=== PATIENT | male | born 1985 | race Caucasian/White ===

== ENCOUNTER → 2018-03-26 10:23 | Outpatient (CLI) | payer MEDICAID, SELFPAY | PROVIDERS: PCP Internal Medicine Adolescent Medicine; Visit Provider Nurse Practitioner Family | DX: Z02.1 Encounter for pre-employment examination (principal) ==

== ENCOUNTER 2020-10-01 18:44 | Emergency (ER) | payer OTHER, SELFPAY ==
[2020-10-01] VITALS (7 sets, daily range): BP systolic 100–135; BP diastolic 68–88; PULSE 62–73; RESP 12–20; TEMP 36.6–36.8; O2SAT 96–100; BMI 20.5
--- NOTE | 2020-10-01 19:08 | HMH.EDUTC ---
[facility] [place] Impression: Diarrhea Qualifiers: Diarrhea type: unspecified type Qualified Code(s): R19.7 - Diarrhea, unspecified Disposition: Still a Patient Condition on Discharge: Good Referrals: Cullen Gonsalez MD [Primary Care Provider] - Time of Disposition: 19:15 (sent to ed for eval) Medical Decision Making - Carl Inquiry Pt receiving controlled substance: No Vital Signs: 10/01/20 18:50 Temperature 97.9 F Temperature Source Oral Pulse Rate [Right Brachial] 72 Respiratory Rate 20 Blood Pressure [Right Arm] 123/69 Blood Pressure Mean [Right Arm] 87 Blood Pressure Source [Right Arm] Automatic Cuff Blood Pressure Position [Right Arm] Sitting 02 Sat by Pulse Oximetry 100 Oxygen Delivery Method Room Air [facility] [place] [facility] [place] - General Chief complaint: Urgent [facility] Stated complaint: diarrhea, soa, nausea, stomach pain Time Seen by Provider: 10/01/20 19:08 Mode of Arrival: Ambulatory Source of Information: Patient Limitations: No Limitations Description of Symptoms (Recalled from Triage Doc. by RN): PATIENT STATES THAT ON 09/26 HE STARTED HAVING A SHARP PAIN IN RLQ WITH DIARRHEA AND NAUSEA. ON 09/28 HE STATES HIS STOOL WAS NORMAL , BUT WAS BLACK IN COLOR. ON 09/30 HE HAD MORE DIARRHEA WHICH WAS ALSO BLACK IN COLOR. ALSO C/O ABDMONIAL BLOATING HEENT Symptoms (Recalled from RN notes): No Resp Symptoms (Recalled from RN notes): No Skin Symptoms (Recalled from RN notes): No MS Symptoms (Recalled from RN notes): No Functional Status (Recalled from RN notes): WNL - History of Present Illness Provider Complaint: 35 yr old male presnets with rlq abd pain. pt states it started with loose stool that started out dark johns and then today has been black. pt states yesterday he had bloating and today that has went down but abd is tender and hurting. - Related Data Previous Rx's Medication Instructions Recorded Magnesium Citrate [Magnesium 1 bottle PO ONCE #1 solution 01/12/19 Citrate 10oz Bottle] Ibuprofen [Ibuprofen 600mg 600 mg PO Q6HP PRN #30 tab 01/16/19 Tablet] Benzonatate [Tessalon Perle 100mg 100 mg PO TID PRN #30 cap 01/22/19 Cap] Allergies Allergy/AdvReac Type Severity Reaction Status Date / Time No Known Allergies Allergy Verified 01/20/19 18:56 - Worker's Comp Is this a Worker's Comp case?: No [facility] History - Hepatitis A Screen Drug use history?: No High risk sexual behaviors?: No History of sexually transmitted infection?: No Currently employed?: No Childcare worker?: No Do you have indoor plumbing?: Yes Do you have electricity?: Yes Attestation statement:: This patient has been screened for Hepatitis A risk factors. I have reviewed the patient's past medical history: Yes Medical History: Denies:: Diabetes Mellitus Type 1, Diabetes Mellitus Type 2 Laterality Cases: Left: Arthroscopy Knee - Social History Smoking Status: Unknown if ever smoked Alcohol Intake: never Occupational Status: other Household Members: family ROS Obtained: Yes Systems reviewed as appropriate & no additional complaints - Constitutional Constitutional: Reports system reviewed and no additional complaints, except as docu, Denies fever(s) - Eyes Eyes: Reports system reviewed and no additional complaints, except as docu - ENT Ears, Nose, Mouth, and Throat: Reports system reviewed and no additional complaints, except as docu, Denies sore throat - Cardiovascular Cardiovascular: Reports system reviewed and no additional complaints, except as docu, Denies chest pain - Respiratory Respiratory: Yes system reviewed and no additional complaints, except as docu, No change in phlegm color - Gastrointestinal Gastrointestingal: Reports: system reviewed and no additional complaints, except as docu, abdominal pain, bloating, change in bowel habits, change in stool character, diarrhea, loose stools, black, tarry stools, nausea - Genitourinary Male Genitourinary: Reports system re
--- NOTE | 2020-10-01 19:34 | PC.NURSE ---
PATIENT TO ER AT THIS TIME PER MADHAVI SEGUNDO APRN. REPORT GIVEN TO Rosa CLARK RN
--- NOTE | 2020-10-01 19:43 | CT_ITS ---
PROCEDURE: CT ABDOMEN PELVIS W CON CLINICAL INDICATION: abd pain,black stool Lower abdominal pain with black target stools COMPARISON: CT ABDPELW/O CT ABD PELVIS W/O CONTRAST from 12/17/2013 TECHNIQUE: IV Contrast: 75ML Isovue 370 Oral Contrast None Axial images obtained with sagittal and coronal reformats. All CT scans at the facility use one or more dose reduction, viz: automated exposure control, ma/kV adjustment per patient size (including targeted exams where dose is matched to indication, i.e. head), or iterative reconstruction technique. FINDINGS: LOWER THORAX: Stable small bilateral nodules. ABDOMEN & PELVIS: There are 2 hypodense lesions of the left lobe of the liver measuring approximately 8 mm. These are indeterminate. Spleen is enlarged at 18 cm. The gallbladder, the adrenal glands, the pancreas, and kidneys have an unremarkable appearance. There is a small umbilical hernia which contains fat. No renal or ureteral calculi. No hydronephrosis. No evidence of appendicitis. No evidence of diverticulitis. No intestinal obstruction or free air. No acute bony anomaly. There is a septated lucency noted in the left ilium measuring 2 cm laterally with a central small sclerotic focus. This is not significantly changed. Scattered small nodes are present within the central mesenteric region IMPRESSION: No definite acute finding. Scattered small mesenteric lymph nodes nonspecific but could be seen with mesenteric adenitis. Dictated by: Joseph Keita MD 10/02/2020 06:57 Joseph Keita MD in [place] 10/02/2020 06:57
[2020-10-01 19:49] LABS: Basophils # 0.1 K/mm3 (0-0.2); Basophils % 0.8 % (0.1-2.0); Eosinophils # 0.1 K/mm3 (0.0-0.4); Eosinophils % 1.2 % (0.1-12.0); Hematocrit 44.1 % (42.0-52.0); Hemoglobin 14.7 g/dL (14.1-18.0); Lymphocytes # 1.9 K/mm3 (0.7-4.5); Mean Corpuscular HGB Conc 33.4 g/dL (31.8-35.4); Mean Corpuscular Hemoglobin 30.2 pg (27.0-31.2); Mean Corpuscular Volume 90.5 fl (80-94); Mean Platelet Volume 7.7 fl (7.4-10.4); Monocytes # 0.3 K/mm3 (0.1-1.0); Monocytes % 5.3 % (1.7-9.3); Neutrophils # 3.9 K/mm3 (1.8-7.8); Neutrophils % 62.8 % (37.0-80.0); Platelet Count 197 K/mm3 (142-424); Red Blood Count 4.88 M/mm3 (4.60-6.20); Red Cell Distribution Width 12.9 % (11.5-17.5); White Blood Count 6.3 K/mm3 (4.8-10.8)
[2020-10-01 19:52] LABS: Chloride 102 mmol/L (98-107); Sodium 139 mmol/L (136-145)
[2020-10-01 19:53] LABS: Potassium 3.7 mmoL/L (3.5-5.1)
[2020-10-01 19:55] LABS: Alanine Aminotransferase 36 U/L (12-78); Amylase 49 U/L (30-110); Anion Gap 11.7 mEq/L (5-15); Aspartate Amino Transferase 37 U/L (17-59); Bilirubin,Unconjugated 0.7 mg/dL (0.0-1.1); Blood Urea Nitrogen 17 mg/dl (9-20); Calcium 9.6 mg/dl (8.4-10.2); Carbon Dioxide 29 mmol/L (22.0-30.0); Creatinine Clearance Estimated 120 mL/min (50-200); Estimated Glomerular Filt Rate 97 ml/min (>60); GFR (African American) 118 ML/MIN (>60); Glucose 110 mg/dl (74-100); Lipase 49 U/L (23-300)
[2020-10-01 19:56] LABS: Albumin Level 4.8 g/dl (3.5-5.0); Alkaline Phosphatase 68 U/L (38-126); Bilirubin,Indirect 0.7 mg/dL (0.0-0.9); Bilirubin,Total 0.7 mg/dl (0.2-1.3); Total Protein,Serum 7.9 g/dl (6.3-8.2)
[2020-10-01 20:02] LABS: C-Reactive Protein 4.4 mg/L (0-4)
[2020-10-01 20:15] LABS: Procalcitonin 0.084 ng/mL (0.0-2.0)
[2020-10-01 20:38] LABS: Erythrocyte Sedimentation Rate 16 mm/hr (0-15)
--- NOTE | 2020-10-01 22:05 | HMH.EDNVD ---
ED Disposition Clinical Impression: Diarrhea Qualifiers: Diarrhea type: unspecified type Qualified Code(s): R19.7 - Diarrhea, unspecified Abdominal pain Qualifiers: Abdominal location: generalized Qualified Code(s): R10.84 - Generalized abdominal pain Disposition: Home, Self-Care Condition on Discharge: Good Instructions: DI for Acute Abdomen Additional Instructions: fluids and see pcp for follow up Referrals: Cullen Gonsalez MD [Primary Care Provider] - Hemant Karimi MD [Staff Physician] - - Critical Care Critical Care Time: No Attestation: On 10/01/20, the high probability of a clinically significant, sudden or life threatening deterioration of the following system(s) required my full and direct attention, intervention and personal management. The time I documented below is in addition to time spent performing reported procedures but includes the following listed in this critical care notation. Medical Decision Making - Medical Records Medical records reviewed: Yes: I reviewed the patient's medical records. - Carl Inquiry Pt receiving controlled substance: No Vital Signs: 10/01/20 18:50 10/01/20 19:35 10/01/20 20:09 Temperature 97.9 F 98.2 F Temperature Source Oral Oral Pulse Rate [Right Brachial] 72 67 67 Respiratory Rate 20 16 13 Blood Pressure [Right Arm] 123/69 113/79 115/70 Blood Pressure Mean [Right Arm] 87 90 85 Blood Pressure Source [Right Arm] Automatic Cuff Automatic Cuff Blood Pressure Position [Right Arm] Sitting Sitting 02 Sat by Pulse Oximetry 100 99 96 Oxygen Delivery Method Room Air Room Air 10/01/20 20:30 10/01/20 21:00 10/01/20 21:30 Temperature Temperature Source Pulse Rate [Right Brachial] 64 64 62 Respiratory Rate 13 12 15 Blood Pressure [Right Arm] 100/88 L 100/70 L 107/68 L Blood Pressure Mean [Right Arm] 92 80 81 Blood Pressure Source [Right Arm] Blood Pressure Position [Right Arm] 02 Sat by Pulse Oximetry 98 99 99 Oxygen Delivery Method - Lab Data Lab results reviewed: Yes: I reviewed the patient's lab results. Lab Results 10/01/20 19:10: WBC 6.3, RBC 4.88, Hgb 14.7, Hct 44.1, MCV 90.5, MCH 30.2, MCHC 33.4, RDW 12.9, Plt Count 197, MPV 7.7, Neut % (Auto) 62.8, Lymph % (Auto) 30.0, Cascade % (Auto) 5.3, Eos % (Auto) 1.2, Baso % (Auto) 0.8, Neut # (Auto) 3.9, Lymph # (Auto) 1.9, Cascade # (Auto) 0.3, Eos # (Auto) 0.1, Baso # (Auto) 0.1 10/01/20 19:10: Sodium 139, Potassium 3.7, Chloride 102, Carbon Dioxide 29, Anion Gap 11.7, BUN 17, Creatinine 0.90, Estimated Creat Clear 120, Estimated GFR 97, Est GFR ( Amer) 118, Glucose 110 H, Calcium 9.6, Total Bilirubin 0.7, Direct Bilirubin 0.0, Conjugated Bilirubin 0.0, Indirect Bilirubin 0.7, Unconjugated Bilirubin 0.7, AST 37, ALT 36, Alkaline Phosphatase 68, Total Protein 7.9, Albumin 4.8, Amylase 49 10/01/20 19:10: Lipase 49 10/01/20 19:10: C-Reactive Protein 4.4 H, Procalcitonin 0.084 10/01/20 19:10: ESR 16 H Result diagrams: 10/01/20 19:10 10/01/20 19:10 Orders (Tests/Meds): ED MEDICATIONS Discontinued Medications Generic Name Dose Route Start Last Admin Trade Name Freq PRN Reason Stop Dose Admin Iopamidol 75 ml 10/01/20 20:35 10/01/20 20:36 Iopamidol-370 (76%);100ml Bottle IV 10/01/20 20:36 75 ml ONCE ONE Administration Sodium Chloride 10 ml 10/01/20 20:35 10/01/20 20:36 Sodium Chloride 0.9% 10ml Syr (Rad Only) IV 10/01/20 20:36 10 ml ONCE ONE Administration ORDERS Category Date Time Status CT abdomen pelvis w con Stat Cat Scan 10/01/20 19:43 Taken Occult Blood,Stool Stat Lab 10/01/20 19:43 Ordered Urinalysis and Microscopic Stat Lab 10/01/20 19:43 Ordered - CT Data CT Scan: Abdomen, Pelvis Time Received: 22:[address] Reviewed: Yes: I have viewed the radiologist's interpretation Preliminary Findings: Abnormal - Reevaluation(s) Time: 22:09 Reevaluation #1: improved Nausea/Vomiting/Diarrhea HPI - General Chief co
== END 2020-10-01 22:16 | disposition home or self-care (01) ==
LOC: UTC 19:16 → ER 19:32
PROVIDERS: Emergency Provider Emergency Medicine; PCP Internal Medicine Adolescent Medicine
DX: R10.84 Generalized abdominal pain (principal); R11.0 Nausea; R06.09 Other forms of dyspnea
CPT/HCPCS: 74177; 80048; 80076; 82150; 83690; 84145; 85025; 85651; 86140; 99284; Q9967

== ENCOUNTER 2021-07-05 09:05 | Emergency (ER) | payer OTHER, SELFPAY ==
[2021-07-05 09:30] VITALS: BP 131/83; PULSE 77; RESP 18; TEMP 37.7; O2SAT 98; BMI 20.7
--- NOTE | 2021-07-05 09:37 | HMH.EDUTC ---
[facility] [place] Clinical Impression: Encounter for laboratory testing for COVID-19 virus Disposition: Home, Self-Care Condition on Discharge: Good Instructions: DI for COVID-19 (Suspected or Confirmed ), Preventing the Spread of Coronavirus Discharge Instructions Additional Instructions: *Monitor Temp, Over the counter Motrin or Tylenol as directed/as needed Tylenol every 4 hours and Motrin every 6 hours (as long as your family doctor has told you that you can take it) for fever or pain. and straight to ER if unable to lower temp less than 101.0 after medication given *Warm salt water gargles may help to soothe the throat *Throat Lozenges *Warm fluids like tea with honey may help to soothe the throat *Sleep elevated *Humidifier/Vaporizer *Flonase 2 sprays in each nostril daily but be aware that it may take 2-3 days before you notice improvement *Bromfed may cause drowsiness. Know how it effects you (your child) before driving, caring for small child, or sending your child to school. Not other antihistamines/allergy medications while taking bromfed Follow up IMMEDIATELY for new or worsening symptoms or no Noticeable improvement over the next 48-72 hours. 911 for difficulty breathing or swallowing You were tested for today for COVID19 your test result should be back in the next 24-48 hours, you may call to the [facility] to see if your test results are back in the next 48 hours [phone] [facility] hours are 9am-9pm You was given a handout with instructions for Self Quarantine and Self isolation for while you wait on test results and what to do if they are positive If you are positive the Health Dept will be contacting you also Make sure to take your Vitamins Vit. C Vit D and Zinc if you can take them Prescriptions: Brompheniramine/Pseudoephed/Dm [Bromfed Dm Cough Syrup] 5 - 10 ml PO Q46H PRN #200 ml PRN Reason: Cough Transmission Status: [facility] to [id number] Fluticasone Propionate [Flonase 50mcg nasal spray 16gm] 1 spr NS DAILY #1 each Transmission Status: Pending to [id number] Referrals: Provider,Referral, MD [Primary Care Provider] - As needed Time of Disposition: 09:40 Medical Decision Making - Carl Inquiry Pt receiving controlled substance: No Carl was queried for this patient: No Vital Signs: 07/05/21 09:30 Temperature 99.8 F H Temperature Source Oral Pulse Rate [Right] 77 Respiratory Rate 18 Blood Pressure [Right Arm] 131/83 Blood Pressure Mean [Right Arm] 99 02 Sat by Pulse Oximetry 98 Orders (Tests/Meds): ORDERS Category Date Time Status Covid-19 Nasal PCR ([facility]) Routine Lab 07/05/21 09:31 Ordered [facility] [place] [facility] [place] - General Stated complaint: covid test Time Seen by Provider: 07/05/21 09:37 Mode of Arrival: Ambulatory Description of Symptoms (Recalled from Triage Doc. by RN): CHECK FOR COVID 19 RUNNY NOSE COUGH & CONGESTIONS SINCE YESTERDAY HEENT Symptoms (Recalled from RN notes): Yes Resp Symptoms (Recalled from RN notes): No Skin Symptoms (Recalled from RN notes): No MS Symptoms (Recalled from RN notes): No Functional Status (Recalled from RN notes): WNL - History of Present Illness Provider Complaint: Patient states that he has been feeling achy, having runny nose and cough States that his work wanted him to get tested before he can come back Denies known exposure but wanted to get tested for COVID - Related Data Previous Rx's Medication Instructions Recorded Magnesium Citrate [Magnesium 1 bottle PO ONCE #1 solution 01/12/19 Citrate 10oz Bottle] Ibuprofen [Ibuprofen 600mg 600 mg PO Q6HP PRN #30 tab 01/16/19 Tablet] Benzonatate [Tessalon Perle 100mg 100 mg PO TID PRN #30 cap 01/22/19 Cap] Brompheniramine/Pseudoephed/Dm 5 - 10 ml PO Q46H PRN #200 ml 07/05/21 [Bromfed Dm Cough Syrup] Fluticasone Propionate [Flonase 1 spr NS DAILY #1 each 07/05/21 50mcg nasal spray 16gm] Allergies Allergy/AdvReac Type Severity Reaction Status Date / Time No Maria Antonia
[2021-07-05 09:47] VITALS: BP 131/83; PULSE 77; RESP 18; TEMP 37.7; O2SAT 98
== END 2021-07-05 09:49 | disposition home or self-care (01) ==
PROVIDERS: Emergency Provider Nurse Practitioner
DX: U07.1 COVID-19 (principal)
CPT/HCPCS: 99202; G0463; U0003

== ENCOUNTER → 2021-11-10 13:53 | Outpatient (CLI) | payer OTHER, SELFPAY | PROVIDERS: Visit Provider Nurse Practitioner | DX: Z20.822 Contact with and (suspected) exposure to COVID-19 (principal) | CPT/HCPCS: C9803; U0003; U0005 ==

== ENCOUNTER 2023-07-04 14:42 | Emergency (ER) | payer OTHER, SELFPAY ==
[2023-07-04 14:50] VITALS: BP 115/75; PULSE 75; RESP 20; TEMP 36.6; O2SAT 98; BMI 21.9
--- NOTE | 2023-07-04 15:06 | EXP.UTC ---
Discharge Plan Disposition Patient Disposition: Home, Self-Care Condition: Good Prescriptions Prescriptions: New guaifenesin [Mucinex] 600 mg tablet extended release 12hr 1,200 mg PO BID PRN (Reason: cough) Qty: 20 0RF No Action magnesium citrate [Citrate of Magnesia] 1 BOT solution 1 bottle PO ONCE Qty: 1 0RF ibuprofen 600 MG tablet 600 mg PO Q6HP PRN (Reason: Mild Pain) Qty: 30 0RF benzonatate [Tessalon Perles] 100 MG capsule 100 mg PO TID PRN (Reason: Cough) Qty: 30 0RF ytyuwsoqclfrjho-ujwdsqsnz-MO 118 ML syrup 5 - 10 ml PO Q46H PRN (Reason: Cough) Qty: 200 0RF fluticasone propionate 120 SPR/BOT bottle 1 spr NS DAILY Qty: 1 0RF Rx Instructions: Each nostril daily Referrals Follow up/Referrals: Cullen Gonsalez MD [Primary Care Provider] - See instructions Activity Restrictions/Add. Instructions Additional Instructions/Restrictions: *Monitor Temp, Over the counter Motrin or Tylenol as directed/as needed Tylenol every 4 hours and Motrin every 6 hours (as long as your family doctor has told you that you can take it) for fever or pain. and straight to ER if unable to lower temp less than 101.0 after medication given *Warm salt water gargles may help to soothe the throat *Throat Lozenges? *Warm fluids like tea with honey may help to soothe the throat? *Sleep elevated *Humidifier/Vaporizer Your throat swab was sent for culture. Those results are typically sent to your primary care. Be sure to follow up in 2-3 days with your family doctor/primary care physician if no improvement so they can review those result and treat if necessary. If you don?t have a primary care doctor, I recommend you get one but in the mean time, you will have to return to a walk in clinic Follow up IMMEDIATELY for new or worsening symptoms or no Noticeable improvement over the next 48-72 hours. 911 for difficulty breathing or swallowing You were tested for today for COVID19 your test result should be back in the next 24 hours you may check for your results on the [facility] Portal you will need to Quarantine until your test results are neg or if they was Positive then Quarantine for 5 days Clinical Impressions Clinical Impression: Viral syndrome Stand Alone Forms Stand Alone Forms: Work/School Release Instructions Patient Instructions: DI for COVID-19 (Suspected or Confirmed ), Preventing the Spread of Coronavirus Discharge Instructions, Coronavirus Disease 2019 Discharge ED Provider: Marry Evans [facility] HPI General Stated complaint: sore throat,lung pain, cough Mode of Arrival: Ambulatory Source of Information: Patient Limitations: No Limitations Time Seen by Provider: 07/04/23 15:06 Description of Symptoms (Recalled from Triage Doc. by RN): PATIENT C/O SOA, BODY ACHES, DIZZINESS AND COUGH. RECENTY EXPOSED TO COVID HEENT Symptoms (Recalled from RN notes): Yes Resp Symptoms (Recalled from RN notes): No Skin Symptoms (Recalled from RN notes): No MS Symptoms (Recalled from RN notes): No Functional Status (Recalled from RN notes): WNL History of Present Illness Provider Complaint: Patient states that he was recently exposed to COVID State that his shen tested positive last night but not sure if he has that or something else States that he has been having sinus congestion, drainage in the back of his throat, sore scratchy and burning in his chest at times when he coughs Related Data Previous Rx's Medication Instructions Recorded magnesium citrate (Citrate of 1 bottle PO ONCE ##1 01/12/19 Magnesia oral) ibuprofen 600 mg tablet 600 mg PO Q6HP PRN Mild Pain #30 01/16/19 tabs benzonatate 100 mg capsule 100 mg PO TID PRN Cough #30 caps 01/22/19 (Devon Butler) [id number]-azoguwqerzkcwkz-YY 5 - 10 ml PO Q46H PRN Cough #200 mL 07/05/21 2 mg-30 mg-10 mg/5 mL oral syrup fluticasone propionate 50 1 spr NS DAILY #1 ea 07/05/21 mcg/actuation na
[2023-07-04 15:20] VITALS: BP 115/75; PULSE 75; RESP 20; TEMP 36.6; O2SAT 98
[2023-07-04 15:21] LABS: UTC Strep Screen (Rapid) Negative (Negative)
== END 2023-07-04 15:26 | disposition home or self-care (01) ==
PROVIDERS: Emergency Provider Nurse Practitioner; PCP Internal Medicine Adolescent Medicine
DX: R05.9 Cough, unspecified (principal); R09.81 Nasal congestion; B34.9 Viral infection, unspecified; Z20.822 Contact with and (suspected) exposure to COVID-19
CPT/HCPCS: 87880; 99212; 99214; G0463

== ENCOUNTER 2024-01-26 15:11 | Emergency (ER) | payer OTHER, SELFPAY ==
[2024-01-26 15:20] VITALS: BP 119/73; PULSE 72; RESP 19; TEMP 36.8; O2SAT 97; BMI 20.6
[2024-01-26 15:31] LABS: Microscopic, Urine URINE MICROSCOPIC (MICROSCOPIC)
--- NOTE | 2024-01-26 15:35 | ED_ITS ---
Discharge Plan Disposition Patient Disposition: Home, Self-Care Condition: Good Prescriptions Prescriptions: No Action magnesium citrate [Citrate of Magnesia] 1 BOT solution 1 bottle PO ONCE Qty: 1 0RF ibuprofen 600 MG tablet 600 mg PO Q6HP PRN (Reason: Mild Pain) Qty: 30 0RF benzonatate [Tessalon Perles] 100 MG capsule 100 mg PO TID PRN (Reason: Cough) Qty: 30 0RF opejfebbqaekpdg-nduuhmxha-TR 118 ML syrup 5 - 10 ml PO Q46H PRN (Reason: Cough) Qty: 200 0RF fluticasone propionate 120 SPR/BOT bottle 1 spr NS DAILY Qty: 1 0RF Rx Instructions: Each nostril daily guaifenesin [Mucinex] 600 mg tablet extended release 12hr 1,200 mg PO BID PRN (Reason: cough) Qty: 20 0RF Referrals Follow up/Referrals: Cullen Gonsalez MD [Primary Care Provider] - See instructions Activity Restrictions/Add. Instructions Additional Instructions/Restrictions: Do not have any sexual contact with anyone until your test results are back and are either negative or you have been treated Follow up with your Family Doctor in the next 5 days for the results if they are back and further treatment if needed Make sure to follow up with your Family Doctor they will be able to see your results and can go over them with you Straight to ER if any life threatening symptoms Clinical Impressions Clinical Impression: Exposure to STD Instructions Patient Instructions: Facts About Sexually Transmitted Infections, How to Detect and Treat STDs, Chlamydia: The Silent STD Discharge ED Provider: Marry Evans [facility] General Stated complaint: check for sexual diseases Mode of Arrival: Ambulatory Source of Information: Patient Limitations: No Limitations Time Seen by Provider: 01/26/24 15:35 Description of Symptoms (Recalled from Triage Doc. by RN): PATIENT REPORTS POSSIBLE EXPOSURE TO AN STD BUT DOES NOT KNOW THE NAME. DENIES SYMPTOMS AT THIS TIME HEENT Symptoms (Recalled from RN notes): No Resp Symptoms (Recalled from RN notes): No Skin Symptoms (Recalled from RN notes): No MS Symptoms (Recalled from RN notes): No Functional Status (Recalled from RN notes): WNL History of Present Illness Provider Complaint: Patient states that he was with someone that was on some medication for an STD and he is not sure which one but thinks she has to take the medication when she has an outbreak States that he does not having any lesions or sores on him but wanted to get tested for GC/Chlamydia and herpes Related Data Previous Rx's Medication Instructions Recorded magnesium citrate (Citrate of 1 bottle PO ONCE ##1 01/12/19 Magnesia oral) ibuprofen 600 mg tablet 600 mg PO Q6HP PRN Mild Pain #30 01/16/19 tabs benzonatate 100 mg capsule 100 mg PO TID PRN Cough #30 caps 01/22/19 (Devon Butler) [id number]-gakdabyzgsqfrxb-UM 5 - 10 ml PO Q46H PRN Cough #200 mL 07/05/21 2 mg-30 mg-10 mg/5 mL oral syrup fluticasone propionate 50 1 spr NS DAILY #1 ea 07/05/21 mcg/actuation nasal spray,suspension guaifenesin 600 mg tablet, 1,200 mg (2 x 600 mg) PO BID PRN 07/04/23 extended release 12 hr (Mucinex) cough #20 tabs Allergies Allergy/AdvReac Type Severity Reaction Status Date / Time No Known Allergies Allergy Verified 07/05/21 09:37 Worker's Comp Is this a Worker's Comp case?: No [facility] Disclaimer: The information contained in this section may have been updated after the patient was seen, as this information can be updated by other users. Social History Smoking Status: Unknown if ever smoked alcohol intake: never current occupational status: other Travel in the last 8 weeks: None household members: family ROS Obtained: Yes All systems reviewed & no additional complaints except as documented and Yes Systems reviewed as appropriate & no additional complaints except as documented Constitutional Constitutional: Reports system reviewed and no additional complaints, except as documented and Reports as per HPI ENT Ears, Nose, Mouth, and Throat: Reports system reviewed and no additional complaints, except as documented and Reports as per HPI Cardiovascular Cardiovascular: Reports system reviewed and no additional complaints, except as documented and Reports as per HPI Respiratory Respiratory: Reports system reviewed and no additional complaints, except as documented and Reports as per HPI Gastrointestinal Gastrointestingal: Reports system reviewed and no additional complaints, except as documented and as per HPI Genitourinary Male Genitourinary: Reports system reviewed and no additional complaints, except as documented, Reports as per HPI, Denies genital lesions, Denies genital pain, Denies penile discharge, Denies scrotal swelling, Denies testicular mass and Denies testicular pain Physical Exam General General appearance: alert and in no apparent distress Chest Chest inspection: Present normal inspection and symmetric chest wall rise Respiratory Respiratory exam: Present normal lung sounds bilaterally; Absent respiratory distress or wheezes Cardiovascular Cardiovascular exam: Present regular rate, normal rhythm and normal heart sounds Neurological Exam Neurological exam: Present alert, oriented X3 and normal gait Medical Decision Making Carl Inquiry Pt receiving controlled substance: No Carl was queried for this patient: No Vital Signs: 01/26/24 15:20 Temperature 98.2 F Temperature Source Oral Pulse Rate [Left Brachial] 72 Respiratory Rate 19 Blood Pressure [Left Arm] 119/73 Blood Pressure Mean [Left Arm] 88 Blood Pressure Source [Left Arm] Automatic Cuff Blood Pressure Position [Left Arm] Sitting 02 Sat by Pulse Oximetry 97 Oxygen Delivery Method Room Air Orders (Tests/Meds): ORDERS Category Date Time Status HSV 1 and 2-Specific Ab, IgG Stat Lab 01/26/24 15:33 Ordered UA [Urinalysis and Microscopic] Stat Lab 01/26/24 15:20 Received
[2024-01-26 15:37] LABS: Appearance,Urine CLOUDY (Clear); Bilirubin,Urine Negative (Negative); Blood, Urine Negative (Negative); Color,Urine YELLOW (Yellow); Glucose,Urine (UA) Negative (Negative); Ketones,Urine Negative (Negative); Leukocyte Esterase,Urine Negative (Negative); Nitrate,Urine Negative (Negative); PH,Urine 7.5 (5.0-8.5); Protein,Urine Negative (Negative); Urobilinogen,Urine 0.2 EU/dl (0.2)
[2024-01-26 15:45] VITALS: BP 119/73; PULSE 72; RESP 19; TEMP 36.8; O2SAT 97
[2024-01-26 15:48] LABS: Bacteria,Urine 1+ /lpf; RBC,Urine Occasional #/hpf (0-3)
[2024-01-26 15:49] LABS: Amorphous Sediment,Urine 3+ /lpf
[2024-01-29 06:12] LABS: Neisseria gonorrhoeae, NAA Negative (Negative)
[2024-01-30 11:43] LABS: HSV 2 IgG, Type Spec <0.91
== END 2024-01-26 15:47 | disposition home or self-care (01) ==
PROVIDERS: Emergency Provider Nurse Practitioner; PCP Internal Medicine Adolescent Medicine
DX: Z20.2 Contact with and (suspected) exposure to infections with a predominantly sexual mode of transmission (principal)
CPT/HCPCS: 81001; 86695; 86790; 87491; 87591; 99212; 99213; G0463

== ENCOUNTER 2024-02-04 16:36 | Emergency (ER) | payer OTHER, SELFPAY ==
[2024-02-04 16:40] VITALS: BP 120/71; PULSE 88; RESP 19; TEMP 36.6; O2SAT 98; BMI 19.6
--- NOTE | 2024-02-04 16:53 | ED_ITS ---
Discharge Plan Disposition Patient Disposition: Home, Self-Care Condition: Good Clinical Impressions Clinical Impression: Left against medical advice Discharge ED Provider: Que Quintero [facility] [place] General Stated complaint: abdominal pain Mode of Arrival: Ambulatory Source of Information: Patient Limitations: No Limitations Time Seen by Provider: 02/04/24 16:54 Description of Symptoms (Recalled from Triage Doc. by RN): Pt's symptoms are stomach pain in the center of his stomach he states that it comes and goes, but radiates to his back. He denies vomit, diarrhea, and or vomiting. HEENT Symptoms (Recalled from RN notes): No Resp Symptoms (Recalled from RN notes): No Skin Symptoms (Recalled from RN notes): No MS Symptoms (Recalled from RN notes): No Functional Status (Recalled from RN notes): n/a History of Present Illness Provider Complaint: Patient states that he started having abdominal pain about 3-4 days ago that has got worse since yesterday and goes into his back at times states that it is uncomfortable and worse it has been today States that he was having some burning with urination and pressure several days ago and took some O TC Azo and it went away but then the stomach pain started, States that his last BM was just before he came in Denies fever, Denies N/V/D Related Data Allergies Allergy/AdvReac Type Severity Reaction Status Date / Time No Known Allergies Allergy Verified 02/04/24 16:49 Worker's Comp Is this a Worker's Comp case?: No [facility] Disclaimer: The information contained in this section may have been updated after the patient was seen, as this information can be updated by other users. Social History Smoking Status: Unknown if ever smoked alcohol intake: never current occupational status: other Travel in the last 8 weeks: None household members: family ROS Obtained: Yes All systems reviewed & no additional complaints except as documented and Yes Systems reviewed as appropriate & no additional complaints except as documented Constitutional Constitutional: Reports system reviewed and no additional complaints, except as documented, Reports as per HPI, Denies body ache, Denies chills and Denies fever(s) ENT Ears, Nose, Mouth, and Throat: Reports system reviewed and no additional complaints, except as documented and Reports as per HPI Cardiovascular Cardiovascular: Reports system reviewed and no additional complaints, except as documented and Reports as per HPI Respiratory Respiratory: Reports system reviewed and no additional complaints, except as documented and Reports as per HPI Gastrointestinal Gastrointestingal: Reports system reviewed and no additional complaints, except as documented, as per HPI and abdominal pain (reports mid to upper abdomen going through to back at times); Denies diarrhea, nausea or vomiting Comments: reports last BM earlier today Genitourinary Male Genitourinary: Reports system reviewed and no additional complaints, except as documented, Reports as per HPI and Reports other Comments: reports had burning with urination several days ago took AZO and that got better Physical Exam General General appearance: alert and in no apparent distress ENT ENT exam: Present mucous membranes moist Respiratory Respiratory exam: Present normal lung sounds bilaterally; Absent respiratory distress or wheezes Cardiovascular Cardiovascular exam: Present regular rate, normal rhythm and normal heart sounds Abdominal Exam Abdominal exam: Present soft and tenderness (reports tenderness mid to upper abdomen ); Absent distention Neurological Exam Neurological exam: Present alert, oriented X3 and normal gait Medical Decision Making Carl Inquiry Pt receiving controlled substance: No Carl was queried for this patient: No Vital Signs: 02/04/24 16:40 Temperature 97.9 F Temperature Source Oral Pulse Rate [Right Radial] 88 Respiratory Rate 19 Blood Pressure [Right Arm] 120/71 Blood Pressure Mean [Right Arm] 87 Blood Pressure Source [Right Arm] Automatic Cuff Blood Pressure Position [Right Arm] Sitting 02 Sat by Pulse Oximetry 98 Oxygen Delivery Method Room Air Lab Data Lab results reviewed: Yes I reviewed the patient's lab results. Medical Decision Narrative: Discussed with patient about abdominal pain States that sharp at times started several days ago and initially come and gone did have some burning with urination took AZO and that went away but stomach pain continued states got worse since yesterday reports pain in mid to upper abdomen and shoots through into his back at times and this evening it was bothering worse UA done in [place] trace blood discussed with patient about transfer to the ED for further evaluation and testing and he agreed upon transfer to the ED with staff, states that she wanted him to go [facility] and patient signed AMA and they left hospital
[2024-02-04 17:18] LABS: Apearance,Urine Cloudy (Clear); Bilirubin,Urine Negative (Negative); Blood, Urine Trace (Negative); Color,Urine Dark Yellow (Yellow); Glucose,Urine (UA) Negative (Negative); Ketones,Urine Negative (Negative); PH,Urine 6.5 (5.0-8.5); Protein,Urine Negative (Negative); UTC Leukocyte Esterase,Urine Negative (Negative); UTC Nitrate,Urine Negative (Negative); Urobilinogen,Urine 1 EU/dl (0.2)
--- NOTE | 2024-02-04 17:44 | PC.NURSE ---
Pt decided that he wanted to not go to the ER stated he wanted to go to another hospital. He signed an AMA form.
[2024-02-04 17:46] VITALS: BP 120/71; PULSE 88; RESP 19; TEMP 36.6; O2SAT 98
== END 2024-02-04 18:22 | disposition home or self-care (01) ==
LOC: UTC 16:39 → ER 17:42 → UTC 18:21
PROVIDERS: Emergency Provider Nurse Practitioner; PCP Internal Medicine Adolescent Medicine
DX: R10.9 Unspecified abdominal pain (principal)
CPT/HCPCS: 81003; 99212; 99213; G0463

== ENCOUNTER 2024-03-17 17:10 | Emergency (ER) | payer OTHER, SELFPAY ==
[2024-03-17 17:12] VITALS: BP 149/88; PULSE 93; RESP 20; TEMP 37.1; O2SAT 98
[2024-03-17 17:44] VITALS: BP 140/80; PULSE 88; RESP 17; TEMP 37.1; O2SAT 98
--- NOTE | 2024-03-17 17:56 | ED_ITS ---
Discharge Plan Disposition Patient Disposition: Home, Self-Care Condition: Good Prescriptions Prescriptions: New prednisone 50 mg tablet 50 mg PO DAILY 5 Days Qty: 5 0RF Referrals Follow up/Referrals: Cullen Gonsalez MD [Primary Care Provider] - See instructions Activity Restrictions/Add. Instructions Additional Instructions/Restrictions: You were evaluated in the emergency department today. We feel that you likely have radiculopathy, or issues with the nerve going down your arm. This can cause numbness, tingling, as well as pain. CT scans and x-rays in the ED do not show nerves very well, so we did not do imaging today. I recommend following up very closely with your primary care provider for this. They may choose to refer you to orthopedics or neurology as they see fit. They may also choose to order MRI as they see fit. We are prescribing you a short steroid Dosepak to help improve your symptoms of pain and paresthesias. Please complete the full course as prescribed. You may also take Tylenol and ibuprofen at home as needed for pain. Return to the emergency department for new or worsening symptoms. Clinical Impressions Clinical Impression: Cervical radiculopathy Stand Alone Forms Stand Alone Forms: Work/School Release Instructions Patient Instructions: DI for Cervical Radiculopathy Discharge ED Provider: Becky Hyde General Adult HPI General Chief complaint: PAIN Stated complaint: RT arm tingling, numb Time Seen by Provider: 03/17/24 17:16 Mode of Arrival: Ambulatory Source of Information: Patient Limitations: No Limitations Description of Symptoms (Recalled from ER Triage Doc. by RN): Patient presents to ED with right hand/arm tingling for 1 month. Patient states he will get sharp pains shooting down his arm at times as well. History of Present Illness HPI narrative: This patient is a 38-year-old male who denies significant past medical history presenting to the emergency department for evaluation with concern for 1 month of tingling, paresthesias, and sharp pain shooting from his right shoulder down his right arm. It is intermittent. He notes that it seems to get worse whenever he lifts things a lot at work. He notes that he had not seen anyone for this previously, as today is the first day that he has had time. No falls, injuries, or other concerns. No fevers or infectious symptoms. Related Data Previous Rx's Medication Instructions Recorded prednisone 50 mg tablet 50 mg PO DAILY 5 days #5 tabs 03/17/24 Allergies Allergy/AdvReac Type Severity Reaction Status Date / Time No Known Allergies Allergy Verified 02/04/24 16:49 [facility] Disclaimer: The information contained in this section may have been updated after the patient was seen, as this information can be updated by other users. Social History Smoking Status: Never smoker alcohol intake: never current occupational status: other Travel in the last 8 weeks: None household members: family ROS Obtained: Yes All systems reviewed & no additional complaints except as documented Physical Exam General General appearance: alert and in no apparent distress Head Head exam: atraumatic and normocephalic Eye Eye exam: Present normal appearance, PERRL and EOMI ENT ENT exam: Present normal exam, normal oropharynx, mucous membranes moist and normal external ear exam Neck Neck exam: Present normal inspection, full ROM and trachea midline; Absent tenderness Chest Chest inspection: Present normal inspection and symmetric chest wall rise; Absent tenderness Respiratory Respiratory exam: Present normal lung sounds bilaterally; Absent respiratory di stress, wheezes, stridor or accessory muscle use Cardiovascular Cardiovascular exam: Present regular rate and normal rhythm Abdominal Exam Abdominal exam: Present soft; Absent distention, tenderness or guarding Extremities Exam Extremities exam: Present normal inspection, full ROM, normal capillary refill and other (Subjective paresthesias and pain, but completely neurovascularly intact on exam with good pulses and sensation. Intact motor.); Absent tenderness or edema Back Exam Back exam: Present normal inspection and full ROM; Absent tenderness Neurological Exam Neurological exam: Present alert, oriented X3, CN II-XII intact and normal gait; Absent motor sensory deficit Psychiatric Psychiatric exam: Present normal affect and normal mood Skin Skin exam: Present warm and dry Medical Decision Making Medical Records Medical records reviewed: Yes I reviewed the patient's medical records. Carl Inquiry Pt receiving controlled substance: No Vital Signs: 03/17/24 17:12 03/17/24 17:44 Temperature 98.7 F 98.7 F Temperature Source Oral Oral Pulse Rate 88 Pulse Rate [Right Radial] 93 H Respiratory Rate 20 17 Blood Pressure 140/80 Blood Pressure [Right Arm] 149/88 H Blood Pressure Mean [Right Arm] 108 Blood Pressure Source [Right Arm] Automatic Cuff Blood Pressure Position [Right Arm] Sitting 02 Sat by Pulse Oximetry 98 Oxygen Delivery Method Room Air Room Air Lab Data Lab results reviewed: Yes I reviewed the patient's lab results. Medical Decision Narrative: In summary, this patient is a 38-year-old male presenting to the Emergency Department for evaluation of 1 month of intermittent paresthesias and shooting pain down his right arm. Differential diagnoses considered include but are not limited to cervical radiculopathy, brachial plexus injury, arthritis, neuropathy, vasculopathy. Ruling out the most morbid conditions drove assessment. On exam, the patient is well-appearing. Throughout the entire evaluation, patient is texting with his right hand and using his phone without difficulty. He is neurovascularly intact with no motor, vascular, or sensory deficits on exam. I feel he likely has a radiculopathy, likely cervical in nature given the location of symptoms. Given that this is a chronic issue without new traumatic injury, I do not feel that imaging such as CT scan or x-ray would likely telephone exchange operator. I do not feel labs would telephone exchange operator either. At this time, feel the patient is appropriate for discharge home with outpatient follow-up with his primary care provider for further evaluation and management should they wish to refer him to neurology versus orthopedics or order an outpatient MRI. Patient is agreeable to this. He was given a short course of prednisone to help reduce any sort of inflammation or nerve impingement. He was given instructions for close follow-up, strict return precautions, and he was discharged after all questions were answered. Critical Care Critical Care Time Critical Care Time: No
== END 2024-03-17 17:45 | disposition home or self-care (01) ==
PROVIDERS: Emergency Provider Emergency Medicine; PCP Internal Medicine Adolescent Medicine
DX: M54.12 Radiculopathy, cervical region (principal); R20.2 Paresthesia of skin; M25.511 Pain in right shoulder
CPT/HCPCS: 99283

== ENCOUNTER 2025-03-30 12:45 | Emergency (ER) | payer OTHER, SELFPAY ==
[2025-03-30 12:48] VITALS: BP 123/85; PULSE 77; RESP 18; TEMP 36.6; O2SAT 99; BMI 21.8
--- NOTE | 2025-03-30 12:59 | PC.NURSE ---
eye box and ph strips pulled for .
[2025-03-30 13:00] VITALS: BP 115/70; PULSE 69; RESP 18; O2SAT 98
--- NOTE | 2025-03-30 13:00 | PC.NURSE ---
Dr. Hyde at bedside.
[2025-03-30] MEDS: TETRACAINE 0.5% OPTH SOL 15ML OP (13:23)
[2025-03-30] MEDS: FLUORESCEIN SODIUM 1MG STRIP 1 MG OP (13:23)
[2025-03-30] MEDS: NEOMYCIN-BACIT-POLYM OPHTH OINT 3.5GM TUBE 3.5 GM OP (13:23)
--- NOTE | 2025-03-30 13:38 | PC.NURSE ---
Iv bag normal saline and drip set used to flush patients eyes, Pt did state that helped.
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
[2025-03-30] MEDS: TET/DIPHTH/PERT-ADULT 0.5ML SYRINGE 0.5 ML IM (14:08)
[2025-03-30 14:13] VITALS: BP 130/79; PULSE 87; RESP 15; TEMP 36.9; O2SAT 99
== END 2025-03-30 14:14 | disposition home or self-care (01) ==
PROVIDERS: Emergency Provider Emergency Medicine; PCP Internal Medicine Adolescent Medicine
DX: T26.91XA Corrosion of right eye and adnexa, part unspecified, initial encounter (principal); T26.62XA Corrosion of cornea and conjunctival sac, left eye, initial encounter; W40.9XXA Explosion of unspecified explosive materials, initial encounter
CPT/HCPCS: 90471; 90715; 99284

== ENCOUNTER 2025-06-24 09:39 | Emergency (ER) | payer OTHER, SELFPAY ==
[2025-06-24 09:48] VITALS: BP 126/78; PULSE 66; O2SAT 98
[2025-06-24 09:49] VITALS: BP 126/78; PULSE 73; RESP 16; TEMP 36.7; O2SAT 98; BMI 21.8
[2025-06-24 10:00] VITALS: BP 112/81; PULSE 73; O2SAT 98
--- NOTE | 2025-06-24 10:11 | XR_ITS ---
FINAL REPORT CLINICAL HISTORY: Right index finger distal tip crush injury FINDINGS: AP, oblique and lateral views of the finger were obtained. There is no prior exam for comparison. There is a fracture at the distal tuft of the right second digit, slightly displaced. No other fracture identified.. Joint spaces are preserved. There is soft tissue edema of the distal second digit. No radiopaque foreign body identified IMPRESSION: Right second digit tuft fracture with soft tissue edema. Reviewed, Interpreted and Dictated by Beth Carrillo MD Transcribed by Zeinab Marquis Authenticated and [facility]
--- NOTE | 2025-06-24 10:23 | HMH.EDGENADL ---
Discharge Plan Disposition Patient Disposition: Home, Self-Care Condition: Good Prescriptions Prescriptions: New cephalexin 500 mg capsule 500 mg PO Q6H 7 Days Qty: 28 0RF oxycodone 5 mg tablet 5 mg PO Q8H PRN (Reason: pain) 4 Days Qty: 12 0RF No Action prednisone 50 mg tablet 50 mg PO DAILY 5 Days Qty: 5 0RF Referrals Follow up/Referrals: Madan Goodrich DO [Staff Physician, Orthopedics] - See instructions Cullen Gonsalez MD [Primary Care Provider, Internal Medicine] - See instructions Activity Restrictions/Add. Instructions Additional Instructions/Restrictions: Please take Keflex 4 times daily for the next week. I want you to take Ibuprofen and Tylenol for pain. If you have breakthrough pain you may take Oxycodone. Please return if any new or worsening symptoms. Clinical Impressions Clinical Impression: Open fracture of distal phalanx of digit of right hand Laceration of finger nail bed Qualifiers: Encounter type: initial encounter Qualified Code(s): S61.319A - Laceration without foreign body of unspecified finger with damage to nail, initial encounter Stand Alone Forms Stand Alone Forms: Work/School Release Instructions Patient Instructions: DI for Laceration Repair Print Language Print Language: Tamazight Discharge ED Provider: Carlos A Randall Adult HPI General Chief complaint: Wound/Laceration Stated complaint: WC 06/23/2025 1:00 am finger laceration right Time Seen by Provider: 06/24/25 09:50 Mode of Arrival: Ambulatory Source of Information: Patient Description of Symptoms (Recalled from ER Triage Doc. by RN): Patient presents to ED for crush injury to right index finger at work last night. Patient has blood blister through the nail bed, small laceration to the fingertip. History of Present Illness HPI narrative: This is a 40-year-old male patient, with no significant past medical history of daily medications, who is presenting to the emergency department today for evaluation of an injury to his right index fingernail. Patient states that he was working on the job site when a heavy piece of metal crossed his finger. He suffered a superficial laceration to the index finger nail and has had the development of a subungual hematoma. He has had minimal amounts of blood escaping the lateral and medial aspects of the fingernail itself. He has not had any abnormal motor or sensory function. Related Data Previous Rx's ?Medication ?Instructions ?Recorded prednisone 50 mg tablet 50 mg PO DAILY 5 days #5 tabs 03/17/24 cephalexin 500 mg capsule 500 mg PO Q6H 7 days #28 caps 06/24/25 oxycodone 5 mg tablet 5 mg PO Q8H PRN pain 4 days #12 06/24/25 tabs Allergies Allergy/AdvReac Type Severity Reaction Status Date / Time No Known Allergies Allergy Verified 02/04/24 16:49 [facility] Disclaimer: The information contained in this section may have been updated after the patient was seen, as this information can be updated by other users. Social History Smoking Status: Never smoker alcohol intake: never current occupational status: other Travel in the last 8 weeks?: None household members: family Have you lived/traveled outside US in past 30 days?: No Contact w/someone who lives/traveled outside US past 30 days?: No Exposure to someone with infectious disease in past 14 days?: No Do you have a fever (greater than 100.4 F or 38 C)?: No Have you tested positive for COVID-19?: No Exposed to someone with COVID-19 in past 14 days?: No Do you have a sore throat?: No Do you have a cough?: No Do you have any weakness?: No Do you have any diarrhea?: No Are you experiencing any unusual bleeding?: No Do you have any muscle aches/pain?: No Do you have any abdominal pain?: No Are you experiencing loss of taste or smell?: No Other Medical History Have you received the Flu Vaccine for this season: No Have you received the Pneumonia Vaccine: No ROS Obtained: Yes Systems reviewed as appropriate & no additional complaints except as documented Physical Exam General General appearance: other (See MDM) Respiratory Respiratory exam: Present other (See MDM) Cardiovascular Cardiovascular exam: Present other (See MDM) Neurological Exam Neurological exam: Present other (See MDM) Medical Decision Making Medical Records Medical records reviewed: Yes I reviewed the patient's medical records. Screening: Per USPSTF and CDC recommendations, given the prevalence of disease in our region, it is our hospital?s policy to screen for HIV and viral Hepatitis for all patients aged 18 and over and those with ongoing risk factors. Carl Inquiry Pt receiving controlled substance: No Carl was queried for this patient: No Vital Signs: 06/24/25 09:48 06/24/25 09:49 06/24/25 09:49 Temperature 98.1 F 98.1 F Temperature Source Oral Pulse Rate 66 73 Pulse Rate [Left] 73 Respiratory Rate 16 16 Blood Pressure 126/78 126/78 Blood Pressure [Left Arm] 126/78 Blood Pressure Mean [Left Arm] 94 02 Sat by Pulse Oximetry 98 98 98 Oxygen Delivery Method 06/24/25 10:00 06/24/25 10:30 06/24/25 14:46 Temperature 98.1 F Temperature Source Pulse Rate 73 74 80 Pulse Rate [Left] Respiratory Rate 20 Blood Pressure 112/81 114/80 113/78 Blood Pressure [Left Arm] Blood Pressure Mean [Left Arm] 02 Sat by Pulse Oximetry 98 98 Oxygen Delivery Method Room Air Orders (Tests/Meds): ED MEDICATIONS Discontinued Medications Generic Name Dose Route Start Last Admin Trade Name Freq PRN Reason Stop Dose Admin Bupivacaine HCl 10 mg 06/24/25 11:18 06/24/25 12:52 Bupivacaine 0.5% 10ml Vial IJ 06/24/25 11:19 10 mg ONCE ONE Administration Cefazolin Sodium 2 gm 06/24/25 10:39 06/24/25 11:17 Cefazolin 1gm Vial IM 06/24/25 10:40 2 gm ONCE ONE Administration Tetanus/Reduced Diphtheria/Acell Pertussis 0.5 ml 06/24/25 10:39 06/24/25 11:14 Tet/Diphth/Pert-Adult 0.5ml Syringe IM 06/24/25 10:40 0.5 ml .ONCE ONE Administration ORDERS Category Date Time Status Finger XR right minimum 2 views [XR finger RT min 2V] Exams 06/24/25 10:11 Completed Stat Medical Decision Narrative: In summary, this is a 40-year-old male patient who is presented to the emergency department today for evaluation of a crush injury to the distal phalanx of the right index finger. the patient notes that there is some mild bleeding from where the medial and lateral aspect of the fingernail. He has also noticed the development of a subungual hematoma. This patient has no comorbidities that would complicate their medical management or care. On initial evaluation of the patient they were resting comfortably in no acute distress and nontoxic in appearance. They are hemodynamically stable, saturating well room air, and are neurologically intact. On physical examination of the right index finger, there is a superficial laceration of the nail. There is no blood escaping from this laceration to suggest a full-thickness laceration. There is a mild amount of blood escaping from the medial and lateral aspects of the nail itself. The nail is not subluxed or loose. He has tenderness to the distal phalanx, but he has normal motor and sensory function. Differential diagnosis includes distal phalanx fracture, open fracture, among others. I have also considered the possibility of a nail bed injury. The patient defiinitely has a subungual hematoma that will need trephination. Initial workup consisted of x-rays of the right hand. This x-ray was personally interpreted by me and demonstrated a comminuted fracture of the distal phalanx of the right index finger. Given this finding my index of suspicion for a nailbed injury increased substantially. I also had a concern for open fracture if the nailbed was injured. Therefore we prophylactically administered 2 g of Ancef to the patient as well as a Tdap vaccination. I did proceed with a nail removal. In order to tolerate this procedure I performed a digital block. After removing the nail of the index finger I did identify that there is a large, complex nailbed laceration. This was repaired with 4-0 Chromic Gut suture. Patient tolerated this procedure well. Please see procedure note for details. I have prescribed oxycodone to be taken as needed over the next few days. I have also given the patient a 7-day supply of Keflex to take 4 times daily at home. I have requested that the patient follow-up in the orthopedic clinic to be cleared by Dr. Goodrich prior to return to work. At this time all questions have been answered and all parties are agreeable with the decision to discharge home Procedures Risk/Benefits of Procedure(s) Were Explained: Yes Laceration Laceration 1: Site: other (index finger nail bed repair) Side (If applicable): right Size (cm): 2 Description: linear Depth: simple, single layer Pre-repair: wound explored and irrigated extensively (and cleaned with chlorhexidine and alcohol solution) Skin layer closed with: other (chromic gut) Size (cm): 4-0 Number of sutures: 4 Technique: simple, interrupted Nerve Block Nerve Block 1: Time out performed: Yes Local Anesthetic: bupivacaine 0.5% Amount of anesthesia used (mL): 8 Side: Right Nerve Blocks: digital (index finger) Procedure Successful: Yes Patient Tolerated Procedure: well Complications: none Critical Care Critical Care Time Critical Care Time: No
[2025-06-24 10:30] VITALS: BP 114/80; PULSE 74; O2SAT 98
[2025-06-24] MEDS: TET/DIPHTH/PERT-ADULT 0.5ML SYRINGE 0.5 ML IM (11:14)
--- NOTE | 2025-06-24 11:23 | PC.NURSE ---
IM injection of Ancef given in bilateral dorsogluteal sites. Pt tolerated well
[2025-06-24 14:46] VITALS: BP 113/78; PULSE 80; RESP 20; TEMP 36.7; O2SAT 98
== END 2025-06-24 14:47 | disposition home or self-care (01) ==
PROVIDERS: Emergency Provider Student in an Organized Health Care Education/Training Program; PCP Internal Medicine Adolescent Medicine
DX: S61.319A Laceration without foreign body of unspecified finger with damage to nail, initial encounter (principal); Z23 Encounter for immunization
CPT/HCPCS: 73140; 90471; 90715; 96372; 99284; J0665

== ENCOUNTER 2025-06-30 19:48 | Emergency (ER) | payer OTHER, SELFPAY ==
[2025-06-30 20:06] VITALS: BP 116/73; PULSE 66; RESP 18; TEMP 36.3; O2SAT 98; BMI 21.8
--- NOTE | 2025-06-30 20:38 | ED_ITS ---
<Statement entered by Jason Sotomayor MD - 07/01/25 04:03> I was consulted by the DEVORA, and we discussed the complexity of the problems being addressed. I approve the treatment and management plan for this patient's care in the emergency department, thus performing a substantive portion of the medical decision making. Jason Sotomayor MD Discharge Plan Disposition Patient Disposition: Home, Self-Care Condition: Good Prescriptions Prescriptions: No Action prednisone 50 mg tablet 50 mg PO DAILY 5 Days Qty: 5 0RF cephalexin 500 mg capsule 500 mg PO Q6H 7 Days Qty: 28 0RF oxycodone 5 mg tablet 5 mg PO Q8H PRN (Reason: pain) 4 Days Qty: 12 0RF Referrals Follow up/Referrals: Provider,Referral, [Primary Care Provider, Medical] - See instructions Activity Restrictions/Add. Instructions Additional Instructions/Restrictions: You were evaluated on an emergency basis. It is very important that you follow- up with your primary care provider and any specialist who we discussed within the next 2 days in order to better assess your health more comprehensively. For example, incidental findings on imaging or laboratory results that were performed today may be discovered, which do not require immediate medical care, but may impact your health in the future. If your symptoms worsen or persist, please return to the emergency department immediately for reassessment. Take all medications as prescribed. In queue for allowing me to participate in your health care, and I hope you feel better soon. Clinical Impressions Clinical Impression: Encounter for wound re-check Stand Alone Forms Stand Alone Forms: Work/School Release Print Language Print Language: Cymro Discharge ED Provider: Jason Sotomayor General Adult HPI General Chief complaint: Extremity Injury, Upper Stated complaint: workman's comp R pointer finger Time Seen by Provider: 06/30/25 20:38 Mode of Arrival: Ambulatory Source of Information: Patient Description of Symptoms (Recalled from ER Triage Doc. by RN): patient presents to the ED for workmans comp after injuring his right index finger at work on the . he has since been fired from that job. History of Present Illness HPI narrative: 40-year-old male presents emergency department with complaints of pain to his right index finger. He states that he smashed his finger at work on June 23. Reports he was seen here after the initial injury where his fingernail was removed he was started on pain medications and antibiotics at that time. He reports that he has taken all the pain medication and would like a refill. He denies any new injury to the area. Related Data Previous Rx's ?Medication ?Instructions ?Recorded prednisone 50 mg tablet 50 mg PO DAILY 5 days #5 tab s 03/17/24 cephalexin 500 mg capsule 500 mg PO Q6H 7 days #28 cap s 06/24/25 oxycodone 5 mg tablet 5 mg PO Q8H PRN pain 4 days #12 06/24/25 tabs Allergies Allergy/AdvReac Type Severity Reaction Status Date / Time No Known Allergies Allergy Verified 02/04/24 16:49 [facility] Disclaimer: The information contained in this section may have been updated after the patient was seen, as this information can be updated by other users. Social History Smoking Status: Never smoker alcohol intake: never current occupational status: other Travel in the last 8 weeks?: None household members: family Have you lived/traveled outside US in past 30 days?: No Contact w/someone who lives/traveled outside US past 30 days?: No Exposure to someone with infectious disease in past 14 days?: No Do you have a fever (greater than 100.4 F or 38 C)?: No Have you tested positive for COVID-19?: No Exposed to someone with COVID-19 in past 14 days?: No Do you have a sore throat?: No Do you have a cough?: No Do you have any weakness?: No Do you have any diarrhea?: No Are you experiencing any unusual bleeding?: No Do you have any muscle aches/pain?: No Do you have any abdominal pain?: No Are you experiencing loss of taste or smell?: No Other Medical History Have you received the Flu Vaccine for this season: No Have you received the Pneumonia Vaccine: No ROS Obtained: Yes other Musculoskeletal Musculoskeletal: Reports other (Pain to right index finger) Physical Exam Narrative Physical exam: General: Awake, aware, in no acute distress HEENT: Normocephalic, no evidence of trauma CV: RRR, no murmurs, rubs, or gallops Pulm: CTA bilaterally with no rhonchi, rales, wheezes ABD: Nontender, no swelling, guarding, or rebound tenderness Psych, appropriate mood and affect Musculoskeletal: Patient with full range of motion to right index finger. There is no cellulitis or drainage noted from the area where his fingernail has been removed. Patient with intact sensation. General General appearance: alert Respiratory Respiratory exam: Present normal lung sounds bilaterally Cardiovascular Cardiovascular exam: Present regular rate Neurological Exam Neurological exam: Present alert Medical Decision Making Medical Records Screening: Per USPSTF and CDC recommendations, given the prevalence of disease in our region, it is our hospital?s policy to screen for HIV and viral Hepatitis for all patients aged 18 and over and those with ongoing risk factors. Carl Inquiry Pt receiving controlled substance: No Vital Signs: 06/30/25 20:06 Temperature 97.3 F L Temperature Source Oral Pulse Rate [Left Radial] 66 Respiratory Rate 18 Blood Pressure [Left Arm] 116/73 Blood Pressure Mean [Left Arm] 87 Blood Pressure Source [Left Arm] Automatic Cuff Blood Pressure Position [Left Arm] Sitting 02 Sat by Pulse Oximetry 98 Oxygen Delivery Method Room Air Medical Decision Narrative: Initial impression of presenting illness: 40-year-old male presents emergency department for reevaluation of his right index finger. He states that he smashed his finger at work on June 23 and was seen here after the injury. Reports that his fingernail was removed at that time and he was started on pain medications and antibiotics. He reports he has used all the pain medication and is requesting a refill. States he has been taking his antibiotics as presc ribed. He denies any new injury to the area. Differential diagnosis includes but is not limited to: Cellulitis, abscess, contusion Patient arrives hemodynamically stable, afebrile, without respiratory distress with vital signs interpreted by myself. Initial physical exam reveals full range of motion to patient's right index finger with intact sensation. Fingernail has been removed previously. No bleeding or drainage noted from the wound. Rest of exam is unremarkable Disposition: Advised patient that he should continue with the prescribed Keflex. Recommended he continue with Tylenol and ibuprofen as needed for pain control. Vies him to monitor the wound for signs of infection such as redness, swelling, drainage or fevers and return to the emergency department or follow-up with the company that handles his Workmen's Comp. claims. Patient is agreeable to the plan of care. Critical Care Critical Care Time Critical Care Time: No
[2025-06-30 21:33] VITALS: BP 103/65; PULSE 75; RESP 16; TEMP 36.8; O2SAT 97
== END 2025-06-30 21:32 | disposition home or self-care (01) ==
PROVIDERS: Emergency Provider Student in an Organized Health Care Education/Training Program
DX: Z48.89 Encounter for other specified surgical aftercare (principal)
CPT/HCPCS: 99281; 99283